=== PATIENT | male | born 1990 | race Caucasian/White ===

== ENCOUNTER → 2017-09-08 | Outpatient (REF) | payer OTHER ==
[2017-09-08 13:43] LABS: % NORMAL FORMS < 4 % (>=4); IMMOTILITY 79 %; NON PROGRESSIVE MOTILITY (c) 21 %; PROGRESSIVE MOTILITY (a) 0 % (>=32); SEMEN APPEARANCE OPAQUE (OPAQUE); SEMEN VISCOSITY LIQUID (LIQUID); SEMEN VOLUME 2.9 ml (4.0-5.0); SEMEN pH 8.5 (7.0-8.0); SPERM CONCENTRATION 4.4 M/ml (>=15.0); TOTAL MOTILITY 21 % (>=40); WBC CONCENTRATION >1 M/ml (<=1 M/ml)
[2017-09-08 13:44] LABS: SPERM# 12.6 M/Ejac (>=39); TOTAL PROGRESSIVE SPERM 0 M/Ejac.
== END ==
LOC: M LAB REF 12:40
DX: N46.9 Male infertility, unspecified (principal)

== ENCOUNTER → 2017-09-28 | Outpatient (REF) | payer OTHER ==
[2017-09-28 20:05] LABS: CHLAMYDIA DNA AMPLIFICATION NEGATIVE (NEGATIVE); GC DNA AMPLIFICATION NEGATIVE (NEGATIVE)
== END ==
LOC: M SMT 16:50
DX: N46.9 Male infertility, unspecified (principal)

== ENCOUNTER → 2017-10-20 | Outpatient (REF) | payer OTHER ==
[2017-10-20 13:44] LABS: SEMEN APPEARANCE OPAQUE (OPAQUE); SEMEN VISCOSITY LIQUID (LIQUID); SEMEN VOLUME 2.2 ml (4.0-5.0); SEMEN pH 8.5 (7.0-8.0)
[2017-10-20 13:50] LABS: PROGRESSIVE MOTILITY (a) 1 % (>=32); SPERM CONCENTRATION 5.5 M/ml (>=15.0); WBC CONCENTRATION >1 M/ml (<=1 M/ml)
[2017-10-20 13:51] LABS: IMMOTILITY 82 %; NON PROGRESSIVE MOTILITY (c) 17 %; SPERM# 12.2 M/Ejac (>=39); TOTAL MOTILITY 18 % (>=40); TOTAL PROGRESSIVE SPERM 0.1 M/Ejac.
[2017-10-20 13:55] LABS: SPERM ABNORMAL FORMS OTHER (SPECIFIY)
== END ==
LOC: M SMT 13:29
DX: N46.9 Male infertility, unspecified (principal)

== ENCOUNTER → 2023-04-12 | Outpatient (CLI) | payer OTHER ==
[~2023-04-12] MED LIST: ISOVUE-300 61% 100ML VIAL As Ordered ONE; LIDOCAINE 1% MDV 20ML VIAL As Ordered ONE; PROHANCE 279.3MG/ML 5ML VIAL As Ordered ONE
== END ==
LOC: M RAD 12:29
PROVIDERS: ATTEND Specialist
DX: M24.811 Other specific joint derangements of right shoulder, not elsewhere classified (principal); S43.401A Unspecified sprain of right shoulder joint, initial encounter; X58.XXXA Exposure to other specified factors, initial encounter; Y92.9 Unspecified place or not applicable
CPT/HCPCS: 23350; 73223; 77002; A9576; Q9967